=== PATIENT | female | born 1995 | race Caucasian/White ===

== ENCOUNTER 2020-10-15 01:11 | Emergency (ER) | payer BC ==
[2020-10-15 01:22] VITALS: RESP 16; TEMP 97.8
--- NOTE | 2020-10-15 01:48 | ED ---
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 She presents the ER today requesting a Coban 19 swab. Patient states that she's been exposed to multiple people who have COVID 19 she does wear her mask at all times. She states that for the past couple days she's been feeling unwell had some generalized malaise and a nonproductive cough. Due to her symptoms she was advised she had have a rapid COVID test immediately. She states that she doesn't feel too badly, she does not feel that she needs a workupfor chest x-ray. She states she feels like she has a normal cold and could care for herself at home. - Related Data Allergies Allergy/AdvReac Type Severity Reaction Status Date / Time No Known Allergies Allergy Verified 10/15/20 01:22 Review of Systems ROS Statement: Those systems with pertinent positive or pertinent negative responses have been documented in the HPI. ROS Other: All systems not noted in ROS Statement are negative. Past Medical History Past Medical History: No Reported History History of Any Multi-Drug Resistant Organisms: None Reported Past Surgical History: No Surgical Hx Reported Past Psychological History: No Psychological Hx Reported Smoking Status: Current some day smoker Past Alcohol Use History: Rare Past Drug Use History: None Reported General Exam - General Exam Comments Initial Comments: Physical Exam GENERAL: Patient is well-developed and well-nourished. Patient is nontoxic and well-hydrated and is in no distress. HENT: Normocephalic, Atraumatic. EYES: PERRL, EOMI PULMONARY: Unlabored respirations. 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 Results were communicated to the patient was discharged home in stable condition. remained afebrile, normal heart rate no hypoxia throughout her stay in the ER - Lab Data Lab Results 10/15/20 Range/Units 01:26 Coronavirus (PCR) Not Detected (Not Detectd) Disposition Clinical Impression: URI (upper respiratory infection), Exposure to COVID-19 virus Disposition: HOME SELF-CARE Condition: Stable Is patient prescribed a controlled substance at d/c from ED?: No Referrals: David Lake DO [Primary Care Provider] - 1-2 days
[2020-10-15 02:40] VITALS: BP 125/76; PULSE 112
== END 2020-10-15 02:30 | disposition home or self-care (01) ==
LOC: EC 01:11
DX: J06.9 Acute upper respiratory infection, unspecified (principal); F17.200 Nicotine dependence, unspecified, uncomplicated; Z20.828 Contact with and (suspected) exposure to other viral communicable diseases
CPT/HCPCS: 87635; 93005; 99285

== ENCOUNTER 2021-10-05 10:11 | Outpatient (CLI) | payer BC ==
[2021-10-05 11:01] LABS: Basophils % (A) 0 %; Eosinophils # (A) 0.1 k/uL (0-0.7); Eosinophils % (A) 1 %; HCT 37.2 % (34.0-46.0); HGB 12.5 gm/dL (11.4-16.0); Lymphocytes # (A) 1.3 k/uL (1.0-4.8); Lymphocytes % (A) 13 %; MCH 27.5 pg (25.0-35.0); MCHC 33.5 g/dL (31.0-37.0); MCV 81.9 fL (80.0-100.0); Mean Platelet Volume 8.9; Monocytes # (A) 0.5 k/uL (0-1.0); Monocytes % (A) 5 %; Neutrophils # (A) 7.7 k/uL (1.3-7.7); Neutrophils % (A) 79 %; Platelet Count 194 k/uL (150-450); RBC 4.54 m/uL (3.80-5.40); RDW 14.5 % (11.5-15.5); WBC 9.8 k/uL (3.8-10.6)
[2021-10-05 11:24] LABS: Appearance,Urine Clear (Clear); Bacteria,Urine Moderate /hpf; Bilirubin,Urine Negative (Negative); Blood,Urine Negative (Negative); Color,Urine Yellow; Glucose,Urine (UA) Negative (Negative); Ketones,Urine Negative (Negative); Leukocyte Esterase,Urine Trace (Negative); Mucus,Urine Rare /hpf; Nitrite,Urine Negative (Negative); PH, Urine 6.5 (5.0-8.0); Protein,Urine Trace (Negative); RBC,Urine 12 /hpf (0-5); Specific Gravity,Urine 1.016 (1.001-1.035); Squamous Epithelial Cell,Urine 2 /hpf (0-4); Urobilinogen,Urine <2.0 mg/dL (<2.0); WBC,Urine 2 /hpf (0-5)
[2021-10-05 11:31] LABS: Creatinine,Urine Random 117.4 mg/dL; Protein/Creatinine Ratio,Urine 0.068
[2021-10-05 11:56] LABS: ALT 11 U/L (4-34); AST 19 U/L (14-36); African American GFR (CKD) >90 (>60 ml/min/1.73 sqM); Blood Urea Nitrogen 8 mg/dL (7-17); LDH 427 U/L (313-618); Non-African American GFR(CKD) >90 (>60 ml/min/1.73 sqM); Uric Acid 5.7 mg/dL (3.7-7.4)
[2021-10-05 12:11] VITALS: BP 124/85; PULSE 94; RESP 16; TEMP 96.8
== END 2021-10-05 12:06 | disposition home or self-care (01) ==
LOC: FBPOP 10:11
PROVIDERS: ATTEND Obstetrics & Gynecology
DX: O13.3 Gestational [pregnancy-induced] hypertension without significant proteinuria, third trimester (principal); Z3A.38 38 weeks gestation of pregnancy
CPT/HCPCS: 59025; 81001; 82565; 82570; 83615; 84156; 84450; 84460; 84520; 84550; 85025

== ENCOUNTER 2021-10-14 15:49 | Inpatient (IN) | payer BC ==
[2021-10-14] MEDS ORDERED: BUTORPHANOL 1 MG/ML 1 ML VIAL IV PRN (16:05)
[2021-10-14] MEDS ORDERED: DINOPROSTONE 10 MG INSERT.ER VAGINAL ONE (16:05)
--- NOTE | 2021-10-14 17:06 | P.HPOB ---
History of Present Illness H&P Date: 10/14/21 Chief Complaint: Requested induction of labor. This patient is a pleasant 26-year-old 1 para 0 female estimated date of confinement 10/16/2021 estimated gestational age 39-5/7 weeks who presents to labor and delivery for requested two-stage induction of labor. Patient's care is per Dr. Becerril. Her history is such that approximately 38 weeks she had an elevated blood pressure of 152/90. Patient was sent to labor and delivery and had a preeclampsia evaluation which was negative. Patient's blood pressures seemed to remained normal sense. Patient cervix is unfavorable and we discussed options for delivery and she wished to proceed with two-stage induction at this time. care is otherwise uncomplicated. Review of Systems Genitourinary: Reports Menstruation: Reports as per HPI Past Medical History Past Medical History: No Reported History History of Any Multi-Drug Resistant Organisms: None Reported Past Surgical History: No Surgical Hx Reported Past Anesthesia/Blood Transfusion Reactions: No Reported Reaction Past Psychological History: No Psychological Hx Reported Smoking Status: Former smoker Past Alcohol Use History: None Reported Past Drug Use History: None Reported - Past Family History Father Family Medical History: Coronary Artery Disease (CAD), Diabetes Mellitus Medications and Allergies Home Medications Medication Instructions Recorded Confirmed Type Pnv No.95/Ferrous Fum/Folic AC 1 tab PO DAILY 10/05/21 10/05/21 History [ Multivitamin Tablet] Allergies Allergy/AdvReac Type Severity Reaction Status Date / Time No Known Allergies Allergy Verified 10/14/21 16:01 Exam Vital Signs Temp Pulse Resp BP Pulse Ox 10/14/21 16:00 97.8 F 92 18 130/80 97 Intake and Output 10/14/21 10/14/21 10/14/21 06:59 14:59 22:59 Other: Weight 84.822 kg - OBG Physical Exam Abdomen: bowel sounds normal, no diffuse tenderness, no bruit present, no gu arding noted, no hepatomegaly, no splenomegaly, no mass Vulva: both: normal Vagina: normal moisture, no discharge Cervix: no lesion (Cervix is closed and thick.), no discharge Uterus: enlarged (Fundal height 38 cm) Results blood work shows she is O positive, rubella immune, RPR nonreactive, hepatitis B negative, HIV is nonreactive, group B strep was normal, Glucola was abnormal with a normal three-hour gtt. Ultrasound done at 36 weeks showed estimated weight at 6 lbs. 13 oz. is a 75th to 90th percentile. Assessment and Plan Assessment: This is a pleasant 26-year-old 1 para 0 female 39-5/7 weeks who is admitted to labor and delivery for requested induction of labor. Patient's unfavorable cervix. Plan is Cervidil placement and proceed with Pitocin induction per protocol tomorrow. I did also discuss the patient's size of her baby. All patient's questions are answered. Anticipate vaginal delivery. (1) 39 weeks gestation of Current Visit: Yes Status: Acute Code(s): Z3A.39 - 39 WEEKS GESTATION OF SNOMED Code(s): 50314319 (2) Encounter for induction of labor Current Visit: Yes Status: Acute Code(s): Z34.90 - ENCNTR FOR SUPRVSN OF NORMAL , UNSP, UNSP TRIMESTER SNOMED Code(s): 295549889
[2021-10-15] MEDS ORDERED: TERBUTALINE 1 MG/ML VIAL SQ PRN (04:21)
[2021-10-15] MEDS ORDERED: LIDOCAINE 0.5% (PF) 5 MG/ML (50 ML SDV) SQ PRN (04:21)
[2021-10-15] MEDS ORDERED: OXYTOCIN 30 UNITS/500 ML NS 30 UNIT in SALINE 1 500ML.BAG IV SCH ×2 (04:21→18:00)
[2021-10-15] MEDS ORDERED: METHYLERGONOVINE 0.2 MG/ML 1 ML AMP IM PRN (04:21)
[2021-10-15] MEDS ORDERED: OXYTOCIN 10 UNIT/ML 1 ML VIAL IM PRN (04:21)
[2021-10-15] MEDS ORDERED: CARBOPROST TROMETHAMINE 250 MCG/ML 1 ML AMP IM PRN (04:21)
[2021-10-15] MEDS: LACTATED RINGERS 1,000 ML IV SCH ×4 (05:52→21:32)
[2021-10-15 06:16] LABS: Basophils % (A) 0 %; Eosinophils # (A) 0.1 k/uL (0-0.7); Eosinophils % (A) 1 %; HCT 37.6 % (34.0-46.0); HGB 12.5 gm/dL (11.4-16.0); Lymphocytes # (A) 1.2 k/uL (1.0-4.8); Lymphocytes % (A) 15 %; MCH 27.7 pg (25.0-35.0); MCHC 33.2 g/dL (31.0-37.0); MCV 83.3 fL (80.0-100.0); Mean Platelet Volume 9.3; Monocytes # (A) 0.4 k/uL (0-1.0); Monocytes % (A) 5 %; Neutrophils # (A) 6.1 k/uL (1.3-7.7); Neutrophils % (A) 76 %; Platelet Count 154 k/uL (150-450); RBC 4.51 m/uL (3.80-5.40); WBC 8.1 k/uL (3.8-10.6)
[2021-10-15] MEDS ORDERED: SODIUM CHLORIDE 0.9% 100 ML BAG ONE (14:33)
[2021-10-15] MEDS ORDERED: ROPIVACAINE 5MG/ML 20ML VIAL ONE (14:33)
[2021-10-15] MEDS ORDERED: fentaNYL (PF) 50 MCG/ML 5 ML AMP ONE (14:33)
[2021-10-15] MEDS ORDERED: ROPIVACAINE 100 MG, fentaNYL (PF). 200 MCG in SODIUM CHLORIDE 0.9% 76 ML EPIDURAL ONE (15:15)
[2021-10-15] MEDS ORDERED: CITRIC ACID-SODIUM CITRATE 15 ML CUP PO ONE (16:35)
[2021-10-15] MEDS ORDERED: OXYTOCIN 30 UNITS/500 ML NS BAG IV ONE (17:02)
[2021-10-15] MEDS ORDERED: ONDANSETRON 4 MG/2 ML VIAL ONE (17:02)
[2021-10-15] MEDS ORDERED: KETOROLAC 15 MG/ML 1 ML VIAL ONE (17:02)
[2021-10-15] MEDS ORDERED: NALBUPHINE 10 MG/ML (1 ML AMP) ONE (17:02)
[2021-10-15] MEDS ORDERED: MORPHINE SULFATE (PF) 0.3 MG/0.3 ML SYR ONE (17:02)
[2021-10-15] MEDS ORDERED: IBUPROFEN 600 MG TAB PO PRN (17:59)
[2021-10-15] MEDS ORDERED: ONDANSETRON 4 MG/2 ML VIAL IVP PRN (17:59)
[2021-10-15] MEDS ORDERED: diphenhydrAMINE 25 MG CAP PO PRN (17:59)
[2021-10-15] MEDS ORDERED: SIMETHICONE 80 MG CHEWABLE PO PRN (17:59)
[2021-10-15] MEDS ORDERED: ACETAMINOPHEN TAB 500 MG TAB PO PRN (17:59)
[2021-10-15] MEDS ORDERED: METOCLOPRAMIDE 5 MG/ML 2 ML VIAL IVP PRN (17:59)
[2021-10-15] MEDS ORDERED: ZOLPIDEM 5 MG TAB PO PRN (17:59)
[2021-10-15] MEDS ORDERED: NALOXONE 0.4 MG/ML 1 ML VIAL IV PRN (17:59)
[2021-10-15] MEDS ORDERED: diphenhydrAMINE 50 MG/ML 1 ML VIAL IVP PRN (17:59)
[2021-10-15] MEDS ORDERED: LANOLIN CREAM 5 GM TUBE TOPICAL PRN (17:59)
--- NOTE | 2021-10-15 18:28 | P.OP ---
Date of Procedure: 10/15/21 Preoperative Diagnosis: #1: 39 5/7 weeks intrauterine . #2: Nonreassuring heart tones remote from delivery Postoperative Diagnosis: Same Procedure(s) Performed: Primary low transverse section Anesthesia: epidural Surgeon: Herman Coles Meal Room Hand #1: Yanely Darling Estimated Blood Loss (ml): 600 Pathology: none sent Condition: stable Disposition: floor Indications for Procedure: Please see dictated H&P for intimate details of this patient's admission. Brief summary this pleasant 26-year-old 1 para 0 female 39-5/7 weeks gestation admitted to labor and delivery for two-stage induction of labor yesterday for unfavorable cervix. Patient got to 2 cm dilated after the Cervidil and artificial rupture membranes for clear fluid. Labor was induced with Pitocin per protocol today and unfortunately patient began developing some late decelerations which did resolve with the usual resuscitative measures including discontinuing her Pitocin. heart tones became reassuring again and then it was restarted at that time again the and having decelerations at this time was decided to proceed with section for delivery. Patient I discussed the surgery and risks and risks of infection, bleeding, possible injury bowel, bladder, vessels, and other organs. All the patient's questions are answered and a written consent is obtained. Operative Findings: This is a vigorous viable female infant Apgars 8 and 9 delivery time is 1716 hrs. Nuchal cord 1. Description of Procedure: This patient has a Nunn catheter placed to straight drain. Her epidural is do sed up for sufficient level of surgery. With an adequate level of anesthesia she has abdominal prep and drape. Scalpels and taken Pfannenstiel skin incision is then made. A second scalpel is taken down the fascia and the fascia scored with a knife. Fascial incision extended bilaterally using the Beavers scissors. Fascia is dissected off the rectus muscles sharply. Rectus muscles are the peritoneum identified and entered sharply. Peritoneal incision extended superior and inferior without difficulty. Bladder blade is then placed. Bladder peritoneum was taken sharply off the lower uterine segment. Scalpels taken low transverse uterine incision is made. Using a hemostat I into the uterine cavity bluntly. There is loss of clear fluid at this time. Incision is then extended bluntly. 's head is guided through the incision with fundal pressure delivered. Mouth and nares are bulb suctioned. There is a nuchal cord which is easily reduced. With more fundal pressure we deliver the rest this infant's body. This is a vigorous viable female Apgars are 8 and 9 delivery time is 1716 hrs. After delivery of the infant the umbilical cord is doubly clamped and cut and appears to be trivascular. Placenta is then manually extracted intact. Uterus is then externalized and uterine incision demarcated with Butler clamps. Uterine incision then closed using 0 Vicryl running locked fashion 2 layers. Additional [id number] sutures are placed for added hemostasis. With this done the bladder peritoneum was then reapproximated using a 3-0 Vicryl. Excess fluid is removed from the abdomen and pelvis. Uterus, tubes, ovaries appear normal for term gestation. Uterus is placed back into the abdomen. The parietal peritoneum was then identified and closed using 0 Vicryl fashion. Rectus muscles reapproximated using interrupted 0 Vicryl suture. Fascia is then reapproximated using 0 PDS running fashion. Fascial incision is thought to be intact and hemostatic. Subcutaneous tissue was then reapproximated using a 3-0 Vicryl. Skin is closed using poly. All counts are correct 3. No complications. Infant and mother are taken to the birthing suite in satisfactory condition.
[2021-10-15] MEDS: SENNOSIDES-DOCUSATE SODIUM 1 EACH TAB PO SCH (19:42)
[2021-10-16] MEDS: KETOROLAC 30 MG/ML 1 ML VIAL IVP SCH ×5 (00:35→19:46)
--- NOTE | 2021-10-16 05:27 | P.PNOBGPC ---
Subjective - Subjective Patient reports: Reports appetite normal, Reports voiding normally, Reports pain well controlled, Reports ambulating normally : doing well Objective - Vital Signs Latest vital signs: Vital Signs Temp Pulse Resp BP Pulse Ox 10/16/21 00:00 98.1 F 77 18 125/82 96 10/15/21 19:45 97.8 F 79 18 120/73 96 10/15/21 19:15 79 16 128/77 10/15/21 18:45 82 148/76 10/15/21 18:30 68 145/78 10/15/21 18:15 78 159/91 10/15/21 18:00 70 130/71 10/15/21 17:45 97.8 F 78 18 132/75 98 Intake and Output 10/15/21 10/15/21 10/16/21 14:59 22:59 06:59 Output Total 800 Balance -800 Output: Urine 300 Estimated Blood Loss 500 Other: # Voids 4 - Exam Lungs: bilateral: normal Chest: Normal S1, Normal S2 Extremities: Present: normal Abdomen: Present: normal appearance, soft. Absent: distention, tenderness Incision: Present: normal, dry, intact Uterus: Present: normal, firm Assessment and Plan Assessment: Post operative day #1. Patient is resting without complaints. Vital signs are stable and she is afebrile. Uterus is firm nontender and she is having normal lochia. Her incision is intact and dry. CBC is pending at this time. Plan today is to discontinue her catheter, encourage ambulation, advanced to a regular diet, and check a CBC. (1) 39 weeks gestation of Current Visit: Yes Status: Acute Code(s): Z3A.39 - 39 WEEKS GESTATION OF SNOMED Code(s): 94788809 (2) Encounter for induction of labor Current Visit: Yes Status: Acute Code(s): Z34.90 - ENCNTR FOR SUPRVSN OF NORMAL , UNSP, UNSP TRIMESTER SNOMED Code(s): 703112890
[2021-10-16 06:42] LABS: Basophils % (A) 0 %; Eosinophils % (A) 0 %; HCT 30.9 % (34.0-46.0); HGB 10.3 gm/dL (11.4-16.0); Lymphocytes # (A) 1.4 k/uL (1.0-4.8); Lymphocytes % (A) 18 %; MCH 27.7 pg (25.0-35.0); MCHC 33.4 g/dL (31.0-37.0); MCV 83.1 fL (80.0-100.0); Mean Platelet Volume 8.9; Monocytes # (A) 0.3 k/uL (0-1.0); Monocytes % (A) 4 %; Neutrophils # (A) 5.8 k/uL (1.3-7.7); Neutrophils % (A) 75 %; Platelet Count 125 k/uL (150-450); RBC 3.72 m/uL (3.80-5.40); WBC 7.7 k/uL (3.8-10.6)
[2021-10-16] MEDS: SENNOSIDES-DOCUSATE SODIUM 1 EACH TAB PO SCH ×2 (07:30→19:47)
[2021-10-16] MEDS: LACTATED RINGERS 1,000 ML IV SCH ×2 (07:31→15:24)
--- NOTE | 2021-10-16 08:24 | P.PN ---
Progress Note - Text Date:[10/16/2021] Time:[07:07] The patient is status post section Vital signs stable VAS:[0-10] Patient has no complaints of pain. The patient incurred some minimal itching yesterday, this itching is now subsiding. Pain meds to be managed by service.
[2021-10-16 20:31] VITALS: RESP 16
--- NOTE | 2021-10-17 06:23 | P.PNOBGPC ---
Subjective - Subjective Patient reports: Reports appetite normal, Reports voiding normally, Reports pain well controlled, Reports ambulating normally : doing well Objective - Vital Signs Latest vital signs: Vital Signs Temp Pulse Resp BP Pulse Ox 10/17/21 04:00 98.2 F 82 16 122/86 10/17/21 00:00 77 16 10/16/21 20:00 98.1 F 77 16 125/82 10/16/21 15:45 97.6 F 74 18 120/76 96 10/16/21 12:00 97.5 F L 93 16 126/78 10/16/21 07:30 97.5 F L 89 18 131/81 99 Intake and Output 10/16/21 10/16/21 10/17/21 14:59 22:59 06:59 Output Total 550 Balance -550 Output: Urine 550 Other: # Voids 1 1 2 - Exam Lungs: bilateral: normal Chest: Normal S1, Normal S2 Extremities: Present: normal Abdomen: Present: normal appearance, soft. Absent: distention, tenderness Incision: Present: normal, dry, intact Uterus: Present: normal, firm - Labs Labs: Abnormal Lab Results - Last 24 Hours (Table) 10/16/21 Range/Units 05:43 RBC 3.72 L (3.80-5.40) m/uL Hgb 10.3 L (11.4-16.0) gm/dL Hct 30.9 L (34.0-46.0) % Plt Count 125 L (150-450) k/uL Assessment and Plan Assessment: Postoperative day #2. Patient is resting without complaints and wishes to go home. Vital signs are stable she's afebrile. Uterus is firm nontender and her incision is intact and dry. CBC yesterday showed her hemoglobin to be appropriate her platelets however were decreased of 125 and therefore going to repeat today patient is ambulating, urinating, tolerating regular diet. I believe she is stable to discharge home after a repeat her CBC. (1) 39 weeks gestation of Current Visit: Yes Status: Acute Code(s): Z3A.39 - 39 WEEKS GESTATION OF SNOMED Code(s): 67453612 (2) Encounter for induction of labor Current Visit: Yes Status: Acute Code(s): Z34.90 - ENCNTR FOR SUPRVSN OF NORMAL , UNSP, UNSP TRIMESTER SNOMED Code(s): 992842936
--- NOTE | 2021-10-17 06:30 | P.DS ---
Providers Date of admission: 10/14/21 15:49 Expected date of discharge: 10/17/21 Attending physician: Herman Coles Primary care physician: Stated None - Discharge Diagnosis(es) (1) 39 weeks gestation of Current Visit: Yes Status: Acute (2) Encounter for induction of labor Current Visit: Yes Status: Acute Hospital Course: Please see dictated H&P for intimate details of this patient's admission. Brief summary this is a pleasant 26-year-old 1 para 0 female 39-5/7 weeks gestation admitted for two-stage induction of labor. Patient's subsequent goes on to have a primary low transverse section for nonreassuring heart tones remote from delivery. Please see dictated operative note. Postoperative patient does well and on postoperative 2 is felt to be stable for discharge home follow up with Dr. Becerril in 1 week. She did have a platelets of 125 and postoperative day #1 and is pending at time is dictation but these will be followed as well. Procedures: Two-stage induction of labor. Primary low transverse section Patient Condition at Discharge: Good Plan - Discharge Summary New Discharge Prescriptions: New Ibuprofen [Motrin] 600 mg PO Q6H PRN #30 tab PRN Reason: Pain oxyCODONE HCL [OxyIR] 5 mg PO Q4HR PRN #18 tab PRN Reason: Pain No Action Pnv No.95/Ferrous Fum/Folic AC [ Multivitamin Tablet] 1 tab PO DAILY Discharge Medication List Pnv No.95/Ferrous Fum/Folic AC [ Multivitamin Tablet] 1 tab PO DAILY 10/05/21 [History] Ibuprofen [Motrin] 600 mg PO Q6H PRN #30 tab 10/17/21 [Rx] oxyCODONE HCL [OxyIR] 5 mg PO Q4HR PRN #18 tab 10/17/21 [Rx] Follow up Appointment(s)/Referral(s): Na Becerril DO [Doctor of Osteopathic Medicine] - 11/27/21 10:45 am (Please see Dr. Becerril for a postop appointment on 10-24-2021 at 10:15) Patient Instructions/Handouts: (DC) Activity/Diet/Wound Care/Special Instructions: No heavy lifting or strenuous activity for 6 weeks. No intercourse or anything per vagina for 6 weeks. Please call if any fever, chills, excessive vaginal bleeding, and/or abdominal pain. Discharge Disposition: HOME SELF-CARE
[2021-10-17 06:47] LABS: Basophils % (A) 0 %; Eosinophils # (A) 0.1 k/uL (0-0.7); Eosinophils % (A) 1 %; HCT 31.2 % (34.0-46.0); HGB 10.5 gm/dL (11.4-16.0); Lymphocytes # (A) 1.3 k/uL (1.0-4.8); Lymphocytes % (A) 14 %; MCH 27.6 pg (25.0-35.0); MCHC 33.5 g/dL (31.0-37.0); MCV 82.3 fL (80.0-100.0); Mean Platelet Volume 8.8; Monocytes # (A) 0.4 k/uL (0-1.0); Monocytes % (A) 4 %; Neutrophils # (A) 7.5 k/uL (1.3-7.7); Neutrophils % (A) 79 %; Platelet Count 157 k/uL (150-450); RDW 15.1 % (11.5-15.5); WBC 9.5 k/uL (3.8-10.6)
[2021-10-17 10:01] VITALS: BP 130/78; PULSE 74; TEMP 97.6
[2021-10-17] MEDS: SENNOSIDES-DOCUSATE SODIUM 1 EACH TAB PO SCH (10:06)
== END 2021-10-17 12:10 | disposition home or self-care (01) | DRG 788 ==
LOC: 4FBP 15:49
PROVIDERS: ADMIT Obstetrics & Gynecology; ATTEND Obstetrics & Gynecology
DX: O69.81X0 Labor and delivery complicated by cord around neck, without compression, not applicable or unspecified (principal); K21.9 Gastro-esophageal reflux disease without esophagitis; Z20.822 Contact with and (suspected) exposure to COVID-19; O76 Abnormality in fetal heart rate and rhythm complicating labor and delivery; O99.62 Diseases of the digestive system complicating childbirth; Z37.0 Single live birth; Z3A.39 39 weeks gestation of pregnancy; Z79.899 Other long term (current) drug therapy; Z87.891 Personal history of nicotine dependence; Z82.49 Family history of ischemic heart disease and other diseases of the circulatory system; Z83.3 Family history of diabetes mellitus
CPT/HCPCS: 85025; 86850; 86900; 86901; 87635

== ENCOUNTER → 2023-04-22 | Outpatient (CLI) | payer BC ==
[2023-04-22 10:58] LABS: HCT 36.4 % (37.2-46.3); HGB 11.2 g/dL (12.0-15.0); MCH 24.2 pg (27.0-32.0); MCHC 30.8 g/dL (32.0-37.0); MCV 78.8 fL (80.0-97.0); Mean Platelet Volume 10.1 fL (9.5-12.2); NRBC Per 100 WBC 0 /100 WBCS (0.0-0.0); Platelet Count 281 X 10*3/uL (140-440); RBC 4.62 X 10*6/uL (4.10-5.20); RDW 14.7 % (11.5-14.5); WBC 8.65 X 10*3/uL (4.50-10.00)
== END | disposition home or self-care (01) ==
LOC: LABPAT 07:06
PROVIDERS: ATTEND Surgery Plastic and Reconstructive Surgery
DX: Z01.812 Encounter for preprocedural laboratory examination (principal)
CPT/HCPCS: 85027

== ENCOUNTER 2023-04-24 12:14 | Day surgery (SDC) | payer BC ==
[2023-04-18 08:42] VITALS: BMI 34.9
--- NOTE | 2023-04-24 09:59 | P.GSHP ---
History of Present Illness H&P Date: 04/24/23 CHIEF COMPLAINT: Ventral hernia. HISTORY OF PRESENT ILLNESS: The patient is a 28-year-old female who presents with swelling along the abdomen for over 1 year with pain and tenderness. Findings were consistent with ventral hernia. Now she presents for further evaluation and management. PAST MEDICAL HISTORY: Please see list and reviewed. PAST SURGICAL HISTORY: Please see list and reviewed. MEDICATIONS: Please see list and reviewed. ALLERGIES: Please see list and reviewed. SOCIAL HISTORY: Please see list and reviewed. FAMILY HISTORY: No reports of Crohn disease or ulcerative colitis. REVIEW OF ORGAN SYSTEMS: CONSTITUTIONAL: No reports of fevers or chills. Has morbid obesity.. GI: Denies any blood in stools or constipation. HEENT: Denies any trouble with vision, hearing or nosebleeds. No difficulty swallowing. LYMPHATIC: The patient denies any lumps and bumps around the neck. ENDOCRINE: Denies any thyroid disorders. Denies any blood sugar glucose intolerance. RESPIRATORY: Denies pneumonia. Denies any troubles with breathing or dyspnea on exertion. CARDIOVASCULAR: Denies any chest pain, palpitations, or recent heart attacks. GENITOURINARY: Denies any blood in urine or increased urinary frequency. MUSCULOSKELETAL: Denies any back pain, stiffness, joint arthritis. NEUROLOGIC: Denies any numbness or tingling along the distal extremities. No seizure disorders or headaches. PSYCHIATRIC: Has depression. No suidical ideation. HEMATOLOGIC: Denies any abnormal bleeding or bruising. BREASTS: Denies any breast lumps, pain or nipple discharge. PHYSICAL EXAM: VITAL SIGNS: Stable GENERAL: Well-developed pleasant female in no acute distress. HEENT: No scleral icterus. Extraocular movements grossly intact. Moist buccal mucosa. NECK: Supple without lymphadenopathy. CHEST: Unlabored respirations. Equal bilateral excursions. CARDIOVASCULAR: Regular rate and rhythm. Distal 2+ pulses. ABDOMEN: Soft, nondistended. Swelling along the abdomen. MUSCULOSKELETAL: No clubbing, cyanosis, or edema. SKIN: Well perfused. PSYCH: Alert and oriented. No focal or lateralizing signs. ASSESSMENT: 1. Ventral hernia. 2. Morbid obesity, BMI 35.0 PLAN: 1. Recommend proceeding with robotic ventral hernia repair with mesh. 2. Benefits and risks of surgical intervention was discussed including possibility of open technique. 3. DVT prophylaxis. 4. Antibiotic prophylaxis. 5. She is elevated risk with BMI over 35 and morbid obesity. 6. Nutritional assessment for BMI over 35 addressed 7. Non-narcotic pain managment reviewed. 8. Tobacco cessation and counseling performed. 9. Diabetes with strict glycemic control reviewed. Past Medical History Past Medical History: No Reported History History of Any Multi-Drug Resistant Organisms: None Reported Past Surgical History: Appendectomy, Section Past Anesthesia/Blood Transfusion Reactions: No Reported Reaction Additional Past Anesthesia/Blood Transfusion Reaction / Comment(s): Father was in ICU with hallucinations, had a lot of medical problems. Past Psychological History: No Psychological Hx Reported Smoking Status: Former smoker Past Alcohol Use History: Occasional Additional Past Alcohol Use History / Comment(s): Quit smoking 4-5 yrs ago. Past Drug Use History: None Reported - Past Family History Father Family Medical History: Coronary Artery Disease (CAD), Diabetes Mellitus, Deep Vein Thrombosis (DVT) Medications and Allergies Home Medications Medication Instructions Recorded Confirmed Type No Known Home Medications 04/18/23 04/18/23 History Allergies Allergy/AdvReac Type Severity Reaction Status Date / Time No Known Allergies Allergy Verified 04/18/23 08:31
[~2023-04-24 12:14] MED LIST: ACETAMINOPHEN TAB 500 MG TAB PO PRN; HEPARIN SODIUM,PORCINE/PF 5,000 UNIT/0.5 ML SYRINGE SQ PRN; ONDANSETRON 4 MG/2 ML VIAL IVP PRN; SCOPOLAMINE 1 MG/72 HR PATCH TRANSDERM STA
[2023-04-24] MEDS ORDERED: ONDANSETRON 4 MG/2 ML VIAL IVP ONE ×2 (12:28→17:07)
[2023-04-24] MEDS ORDERED: MIDAZOLAM 2 MG/2 ML VIAL IV PRN (12:28)
[2023-04-24] MEDS ORDERED: LIDOCAINE 1% (10MG/ML) FOR IV START INTRADERMA PRN (12:28)
[2023-04-24] MEDS ORDERED: DEXAMETHASONE SOD PHOSPHATE 4 MG/ML 1 ML VIAL IV ONE (12:28)
[2023-04-24] MEDS ORDERED: LACTATED RINGERS 1,000 ML IV SCH (12:28)
[2023-04-24 13:08] LABS: Basophils % (A) 0 %; Eosinophils # (A) 0.2 k/uL (0-0.7); Eosinophils % (A) 2 %; HCT 35.8 % (34.0-46.0); HGB 11.6 gm/dL (11.4-16.0); Lymphocytes # (A) 1.8 k/uL (1.0-4.8); Lymphocytes % (A) 19 %; MCH 24.7 pg (25.0-35.0); MCHC 32.5 g/dL (31.0-37.0); MCV 76.2 fL (80.0-100.0); Mean Platelet Volume 7.4; Microcytosis Slight; Monocytes # (A) 0.4 k/uL (0-1.0); Monocytes % (A) 4 %; Neutrophils # (A) 6.6 k/uL (1.3-7.7); Neutrophils % (A) 72 %; Platelet Count 261 k/uL (150-450); WBC 9.1 k/uL (3.8-10.6)
[2023-04-24 13:22] LABS: ALT 22 U/L (4-34); AST 25 U/L (14-36); African American GFR (CKD) >90 (>60 ml/min/1.73 sqM); Albumin 4.3 g/dL (3.5-5.0); Alkaline Phosphatase 102 U/L (38-126); Anion Gap 8 mmol/L; Blood Urea Nitrogen 10 mg/dL (7-17); Carbon Dioxide 25 mmol/L (22-30); Chloride 104 mmol/L (98-107); Glucose 85 mg/dL (74-99); Non-African American GFR(CKD) >90 (>60 ml/min/1.73 sqM); Potassium 3.7 mmol/L (3.5-5.1); Sodium 137 mmol/L (137-145); Total Bilirubin 0.4 mg/dL (0.2-1.3); Total Protein 7.3 g/dL (6.3-8.2)
[2023-04-24] MEDS ORDERED: MIDAZOLAM 2 MG/2 ML VIAL IVP ONE (13:23)
[2023-04-24] MEDS ORDERED: fentaNYL (PF) 50 MCG/ML 2 ML AMP IVP ONE (13:24)
--- NOTE | 2023-04-24 13:35 | P.ANPRN ---
Procedure Note - Anesthesia - Nerve Block Performed Bilateral Rectus Abdominis Time Out Performed: Yes (:) Date of Procedure: 04/24/23 Procedure Start Time: Procedure Stop Time: Location of Patient: PreOp Indication: Acute Post-Operative Pain, Requested by Surgeon (Dr Selby) Sedation Type: Sedate with meaningful contact maintained Preparation: Sterile Prep Position: Supine Catheter: None Needle Types: Pajunk Needle Gauge: 21 Ultrasound used to visualize needle placement: Yes Ultrasound used to observe medication spread: Yes Injectate: 0.5% Ropivacaine (see comment for volume) (15cc +5cc PF Normal saline each side) Blood Aspirated: No Pain Paresthesia on Injection Noted: No Resistance on Injection: Normal Image Stored and Saved: Yes Events: Uneventful and Well Tolerated
[2023-04-24] MEDS ORDERED: KETOROLAC 15 MG/ML 1 ML VIAL ONE (14:05)
[2023-04-24] MEDS ORDERED: ROPIVACAINE 5 MG/ML 30 ML VIAL ONE (14:05)
[2023-04-24] MEDS ORDERED: NEOSTIGMINE 1 MG/ML 10 ML VIAL ONE (14:05)
[2023-04-24] MEDS ORDERED: fentaNYL (PF) 50 MCG/ML 2 ML AMP ONE (14:05)
[2023-04-24] MEDS ORDERED: PROPOFOL 10 MG/ML 20 ML VIAL IV ONE (14:05)
[2023-04-24] MEDS ORDERED: SODIUM CHLORIDE 0.9% (PF) 10 ML VIAL ONE (14:05)
[2023-04-24] MEDS ORDERED: ROCURONIUM 10 MG/ML (5 ML VIAL) IV ONE (14:05)
[2023-04-24] MEDS ORDERED: HYDROmorphone (PF) 1 MG/ML ONE (14:05)
[2023-04-24] MEDS ORDERED: LIDOCAINE 2% INJ 20 MG/ML (2 ML VIAL) ONE (14:05)
[2023-04-24] MEDS ORDERED: GLYCOPYRROLATE 0.2 MG/ML 2 ML VIAL ONE (14:05)
[2023-04-24] MEDS ORDERED: SUCCINYLCHOLINE CHLORIDE 200 MG/10 ML VIAL IV ONE (14:05)
[2023-04-24] MEDS ORDERED: LIDOCAINE 0.5%-EPI 1:200,000 50 ML VIAL SQ ONE (14:08)
[2023-04-24] MEDS ORDERED: LACTATED RINGERS 1,000 ML IV ONE (15:14)
[2023-04-24 15:32] VITALS: TEMP 97.5
[2023-04-24] MEDS: HYDROmorphone 0.5 MG/0.5 ML SYRINGE IVP PRN ×2 (15:53→17:07)
[2023-04-24 16:59] VITALS: BP 119/83; PULSE 95; RESP 17
--- NOTE | 2023-04-24 17:41 | P.OP ---
Date of Procedure: 04/24/23 Description of Procedure: SURGEON: KATTY SELBY MD PREOPERATIVE DIAGNOSES: 1. Initial epigastric ventral hernia with incarceration 2. Obesity due to excess calories, BMI 35.9 POSTOPERATIVE DIAGNOSES: 1. Initial epigastric ventral hernia with incarceration, 3 x 2 cm 2. Obesity due to excess calories, BMI 35.9 OPERATION: 1. Robotic-assisted da Bony Xi laparoscopic repair of initial incarcerated epigastric ventral hernia without mesh Anesthesia: GETA, regional, local Estimated Blood Loss (ml): 5 Pathology: None COMPLICATIONS: None. Operative Findings: 1. Upper midline epigastric ventral hernia defect 3 x 2 cm 2. Fascia repaired using #1 V-lock suture, fascial imbrication 3 INDICATIONS: The patient is a 28-year-old female who presents with a personal history of abdominal wall hernia. Surgical intervention with laparoscopic versus robotic and open techniques were reviewed. Placement of mesh was also reviewed. Benefits and risks were thoroughly described. Informed consent was obtained. DESCRIPTION OF PROCEDURE: The patient was brought into the operating room and laid in supine position. After general induction, the abdomen had been prepped and draped in standard sterile fashion. Ioban draping was also placed. Prior to incision, a timeout protocol was confirmed with surgical team regarding the patient's name including procedures to be performed. The robot was primed prior to the procedure. A field block using local anesthetic was placed along hernia site including the proposed port sites. Initial incision was made with an #11 blade along the left upper quadrant. A 0 degree 5 mm laparoscopic trocar entry was performed and insufflated. Three 8 mm ports were placed along the left lateral abdominal wall under direct localization after exchanging the 5-mm for an 8 mm port. Placements of the ports were 15 cm from the target anatomy and 10 cm apart. An accessory 12 mm port was placed at the left upper quadrant for exchange of mesh including sutures. The iZotope[employer] Xi robot was previously primed, prepped and draped then docked from the right side of the patient onto the left side of the patient. I then sat at the robot Etactsi Xi console where working arms of the robot including Bovie cautery connected to robotic scissors, needle intermodal owner operator truck driver, and graspers placed by the night assistant. The defects were reduced with preperitoneal fat including the falciform ligament at the upper midline defect. Upper midline defect 3 x 2 cm was found. The incarcerated contents were reduced as the peritoneal fat was cleaned from the abdominal wall. Next, hemostasis was checked with cautery. The hernia defects were oversewn using #1 nonabsorbable V-lock suture with fascial imbrication x 3. 2-0 VLOC 9 inch sutures were used to reapproximate the falciform ligament. A final endoscopic imaging was obtained. All instruments and pneumoperitoneum were evacuated from the abdominal cavity. The da Boyn Xi robot was undocked from the patient. I re-scrubbed into the case for closure of incisions. The fascia of the 12-mm port was probed and closed using Rodney Hunter 0 Vicryl. The incisions were reapproximated using 4-0 Monocryl in an interrupted subcuticular fashion. Liquid glue was applied to the skin after cleansing the skin with normal saline and dilute hydrogen peroxide. An abdominal binder was placed. At the end of the procedure, needle, sponge, and instrument count had been verified correct by surgical assistant. The patient was taken to the postanesthesia care unit in stable condition. Plan - Discharge Summary Discharge Rx Participant: Yes New Discharge Prescriptions: New Simethicone [Gas-X] 125 mg PO AC-TID PRN #20 capsule PRN Reason: Pain Ibuprofen [Motrin] 600 mg PO Q8HR PRN #30 tab PRN Reason: Pain Acetaminophen Tab [Tylenol Tab] 1,000 mg PO Q6HR PRN #30 tablet PRN Reason: Pain Discharge Medication List Acetaminophen Tab [Tylenol Tab] 1,000 mg PO Q6HR PRN #30 tablet 04/24/23 [Rx] Ibuprofen [Motrin] 600 mg PO Q8HR PRN #30 tab 04/24/23 [Rx] Simethicone [Gas-X] 125 mg PO AC-TID PRN #20 capsule 04/24/23 [Rx] Follow up Appointment(s)/Referral(s): Katty Selby MD [STAFF PHYSICIAN] - 04/30/23 Patient Instructions/Handouts: *[facility] - (Anesthesia) Discharge Instructions Outpatient Surgery, Ventral Hernia (DC), *[facility] - Managing Your Pain After Surgery Without Opioids Activity/Diet/Wound Care/Special Instructions: TELEHEALTH - DR WILL CALL YOU BETWEEN 8 am to 6 pm Using antibacterial soap. No lifting over 4 pounds 4 weeks, May 25March shower. No bathtub soaks for 2 weeks, May 08 Wear abdominal binder daily for comfort except for showering. Use ice along incisions for today to prevent swelling. Take tylenol, aleve/ibuprofen, simethicone scheduled for 3 days for best pain relief Discharge Disposition: HOME SELF-CARE
== END 2023-04-24 18:43 | disposition home or self-care (01) ==
LOC: OR 12:14
PROVIDERS: ATTEND Surgery Plastic and Reconstructive Surgery
DX: K43.6 Other and unspecified ventral hernia with obstruction, without gangrene (principal); E66.9 Obesity, unspecified; G89.18 Other acute postprocedural pain; Z90.49 Acquired absence of other specified parts of digestive tract; Z68.35 Body mass index [BMI] 35.0-35.9, adult; Z98.891 History of uterine scar from previous surgery; Z87.891 Personal history of nicotine dependence; Z82.49 Family history of ischemic heart disease and other diseases of the circulatory system; Z83.3 Family history of diabetes mellitus
CPT/HCPCS: 49594; S2900; 80053; 85025